=== PATIENT | male | born 1960 | race Caucasian/White ===

== ENCOUNTER → 2017-09-25 | Outpatient (REF) | payer OTHER ==
[~2017-09-25] MED LIST: ASPI81CH PO; CALC500T36 PO; CIPR-249 PO; IRON65TA PO; MULTCAP11 PO; OMEP40CA2 PO; PERCOCET PO; PROT20TA11 PO; TYLE650T30 PO; VITA250L PO
[2017-09-25 19:12] LABS: ALBUMIN 4.5 GM/DL (3.2-5.2); ALBUMIN/GLOBULIN RATIO 1.45 (1.00-1.93); ALKALINE PHOSPHATASE 55 U/L (45-117); ALT/SGPT 39 U/L (12-78); ANION GAP 10 MEQ/L (8-16); AST/SGOT 49 U/L (7-37); BILIRUBIN,TOTAL 0.7 MG/DL (0.2-1.0); BLOOD UREA NITROGEN 17 MG/DL (7-18); CALCIUM LEVEL 9.4 MG/DL (8.5-10.1); CARBON DIOXIDE LEVEL 22 MEQ/L (21-32); CHLORIDE LEVEL 107 MEQ/L (98-107); CHOLESTEROL LEVEL 154 MG/DL (<200); CREATININE FOR GFR 0.72 MG/DL (0.70-1.30); GLOMERULAR FILTRATION RATE > 60.0 (>56); GLUCOSE, FASTING 99 MG/DL (70-105); SODIUM LEVEL 139 MEQ/L (136-145); TOTAL PROTEIN 7.6 GM/DL (6.4-8.2); TRIGLYCERIDES LEVEL 62 MG/DL (<150)
[2017-09-25 19:17] LABS: POTASSIUM SERUM 5.3 MEQ/L (3.5-5.1)
[2017-09-25 19:22] LABS: BASO # 0.1 10^3/uL (0.0-0.2); BASO % 1.1 % (0.0-1.0); EOS # 0.4 10^3/uL (0.0-0.50); IMMATURE GRANULOCYTE % 0.3 % (0-0); LYMPH # 2.4 10^3/uL (1.5-4.5); LYMPH % 23.4 % (24.0-44.0); MEAN CORPUSCULAR HEMOGLOBIN 31.4 pg (27.0-33.0); MEAN CORPUSCULAR VOLUME 98.2 fl (80.0-96.0); MONO # 0.8 10^3/uL (0.0-0.8); MONO % 7.4 % (0.0-5.0); NEUTROPHILS # 6.6 10^3/uL (1.8-7.7); NEUTROPHILS % 63.8 % (36.0-66.0); PLATELET COUNT, AUTOMATED 323 10^3/uL (150-450); RED CELL DISTRIBUTION WIDTH 13.2 % (11.5-14.5); WHITE BLOOD COUNT 10.3 10^3/uL (4.0-10.0)
== END ==
LOC: M LAB REF 16:24
PROVIDERS: ATTEND Family Medicine
DX: Z00.00 Encounter for general adult medical examination without abnormal findings (principal); K21.9 Gastro-esophageal reflux disease without esophagitis; Z98.84 Bariatric surgery status; F17.200 Nicotine dependence, unspecified, uncomplicated

== ENCOUNTER 2018-12-04 07:17 | Day surgery (SDC) | payer BC, OTHER ==
[~2018-12-04] VITALS: Ht 182.9 cm; Wt 106.6 kg
[~2018-12-04 07:17] MED LIST changes: +NS 1,000 ML IV ONE
[2018-12-04] MEDS ORDERED: PROPOFOL 200 MG/20 ML VIAL As Ordered ONE ×4 (09:39→10:54)
[2018-12-04] MEDS ORDERED: LIDOCAINE 2% INJ 100 MG/5 ML SDV (FOR ANES.) As Ordered ONE (09:39)
--- NOTE | 2018-12-04 10:33 | ROOR ---
Patient Name: Mat Villalba Procedure Date: 12/04/2018 9:38 AM Date of : 1960 Age: 58 Room: [facility] Gender: Male Note Status: Finalized Procedure: Upper GI endoscopy Indications: Heartburn, Assessment following Allyson-en-Y gastrojejunostomy Providers: Jason Barbour MD Referring MD: Yenifer Real DO Requesting Provider: Medicines: Monitored Anesthesia Care Complications: No immediate complications. Procedure: Pre-Anesthesia Assessment: - Prior to the procedure, a History and Physical was performed, and patient medications and allergies were reviewed. The patient is competent. The risks and benefits of the procedure and the sedation options and risks were discussed with the patient. All questions were answered and informed consent was obtained. Patient identification and proposed procedure were verified by the physician, the nurse and the anesthesiologist in the procedure room. Mental Status Examination: alert and oriented. CV Examination: regular rate and rhythm. Prophylactic Antibiotics: The patient does not require prophylactic antibiotics. Prior Anticoagulants: The patient has taken no previous anticoagulant or antiplatelet agents. ASA Grade Assessment: II - A patient with mild systemic disease. After reviewing the risks and benefits, the patient was deemed in satisfactory condition to undergo the procedure. The anesthesia plan was to use monitored anesthesia care (MAC). Immediately prior to administration of medications, the patient was re-assessed for adequacy to receive sedatives. The heart rate, respiratory rate, oxygen saturations, blood pressure, adequacy of pulmonary ventilation, and response to care were monitored throughout the procedure. The physical status of the patient was re-assessed after the procedure. The Endoscope was introduced through the mouth, and advanced to the efferent jejunal loop. The upper GI endoscopy was accomplished without difficulty. The patient tolerated the procedure well. Findings: The examined esophagus was normal. Evidence of a Allyson-en-Y gastrojejunostomy was found. The gastrojejunal anastomosis was characterized by healthy appearing mucosa. This was traversed. The examined jejunum was normal. Impression: - Normal esophagus. - Allyson-en-Y gastrojejunostomy with gastrojejunal anastomosis characterized by healthy appearing mucosa. - Normal examined jejunum. - No specimens collected. Recommendation: - Discharge patient to home. - Resume previous diet. - Continue present medications. Jason Barbour MD Jason Barbour MD 12/04/2018 10:33:04 AM This report has been signed electronically. Number of Addenda: 0 Note Initiated On: 12/04/2018 9:38 AM Estimated Blood Loss: Estimated blood loss: none.
--- NOTE | 2018-12-04 10:41 | ROOR ---
Patient Name: Mat Villalba Procedure Date: 12/04/2018 9:39 AM Date of : 1960 Age: 58 Room: [facility] Gender: Male Note Status: Finalized Procedure: Colonoscopy Indications: High risk colon cancer surveillance: Personal history of non-advanced adenoma, Last colonoscopy: August 2012 Providers: Jason Barbour MD Referring MD: Yenifer Real DO Requesting Provider: Medicines: Monitored Anesthesia Care Complications: No immediate complications. Procedure: Pre-Anesthesia Assessment: - Prior to the procedure, a History and Physical was performed, and patient medications and allergies were reviewed. The patient is competent. The risks and benefits of the procedure and the sedation options and risks were discussed with the patient. All questions were answered and informed consent was obtained. Patient identification and proposed procedure were verified by the physician, the nurse and the anesthesiologist in the procedure room. Mental Status Examination: alert and oriented. CV Examination: regular rate and rhythm. Prophylactic Antibiotics: The patient does not require prophylactic antibiotics. Prior Anticoagulants: The patient has taken no previous anticoagulant or antiplatelet agents. ASA Grade Assessment: II - A patient with mild systemic disease. After reviewing the risks and benefits, the patient was deemed in satisfactory condition to undergo the procedure. The anesthesia plan was to use monitored anesthesia care (MAC). Immediately prior to administration of medications, the patient was re-assessed for adequacy to receive sedatives. The heart rate, respiratory rate, oxygen saturations, blood pressure, adequacy of pulmonary ventilation, and response to care were monitored throughout the procedure. The physical status of the patient was re-assessed after the procedure. The Colonoscope [id number] #[id number] was introduced through the anus and advanced to the cecum, identified by appendiceal orifice and ileocecal valve. The colonoscopy was somewhat difficult due to a redundant colon. The patient tolerated the procedure well. The quality of the bowel preparation was good. Findings: The perianal and digital rectal examinations were normal. The transverse colon and ascending colon were moderately redundant. A 3 mm polyp was found at 26 cm proximal to the anus. The polyp was sessile. The polyp was removed with a jumbo cold forceps. Resection and retrieval were complete. Impression: - Redundant colon. - One 3 mm polyp at 26 cm proximal to the anus, removed with a jumbo cold forceps. Resected and retrieved. Recommendation: - Await pathology results. - Discharge patient to home. - Resume previous diet. - Continue present medications. - If the pathology report reveals adenomatous tissue, then repeat the colonoscopy for surveillance in 5 years. Jason Barbour MD Jason Barbour MD 12/04/2018 10:41:04 AM This report has been signed electronically. Number of Addenda: 0 Note Initiated On: 12/04/2018 9:39 AM Estimated Blood Loss: Estimated blood loss was minimal.
[2018-12-04 10:58] VITALS: BP 132/63
== END 2018-12-04 11:11 | disposition home or self-care (01) ==
LOC: M OPP 07:17
PROVIDERS: ATTEND Surgery
DX: Z86.010 Personal history of colon polyps (principal); D12.6 Benign neoplasm of colon, unspecified; Q43.8 Other specified congenital malformations of intestine; Z98.0 Intestinal bypass and anastomosis status; R12 Heartburn; K21.9 Gastro-esophageal reflux disease without esophagitis; Z09 Encounter for follow-up examination after completed treatment for conditions other than malignant neoplasm; Z79.82 Long term (current) use of aspirin; F17.210 Nicotine dependence, cigarettes, uncomplicated